=== PATIENT | female | born 1990 | race African-American/Black ===

== ENCOUNTER 2019-02-26 13:21 | Emergency (ER) | payer MEDICAID ==
[~2019-02-26] VITALS: Ht 162.6 cm; Wt 48.0 kg
[2019-02-26] MEDS ORDERED: DEXAMETHASONE 10 MG/ML VIAL PO ONE (16:00)
[2019-02-26] MEDS ORDERED: KETOROLAC 60MG/2ML VIAL IM ONE (16:00)
[2019-02-26 17:02] LABS: CHLORIDE 105 mEq/L (98-107)
[2019-02-26] MEDS ORDERED: ONDANSETRON HCL 4MG/2ML INJ IV ONE (17:30)
[2019-02-26] MEDS ORDERED: MORPHINE SULFATE 4 MG/ML CPJ (NOT FOR IM USE) IV ONE (17:30)
[2019-02-26] MEDS ORDERED: IOHEXOL-300 100 ML BOTTLE ONE (18:56)
[2019-02-26] MEDS ORDERED: LIDOCAINE 1%/EPI 1:100,000 10 ML VIAL IJ ONE (20:15)
[2019-02-26] MEDS ORDERED: TETRACAINE/BENZOCAINE/BUTAMBEN 20 GM SPRAY MM ONE (20:15)
[2019-02-26] MEDS ORDERED: LIDOCAINE HCL/EPINEPHRINE 1%-EPI 1:100,000 20 ML VIAL INFIL NR (20:45)
[2019-02-26] MEDS ORDERED: LORAZEPAM 2MG/ML CPJ IV ONE (21:00)
[2019-02-26] MEDS ORDERED: SODIUM CHLORIDE 0.9% 1,000 ML IV ONE (21:00)
[2019-02-26] MEDS ORDERED: AMOXICILLIN/POTASSIUM CLAVULANATE 875/125MG TAB PO ONE (21:30)
[2019-02-26 22:41] VITALS: BP 101/65
== END 2019-02-26 22:45 | disposition home or self-care (01) ==
LOC: ER 13:21
DX: J36 Peritonsillar abscess (principal)
CPT/HCPCS: 36415; 70491; 80048; 87070; 87430; 96372; 96374; 96375; 99284; J1100; J1885; J2270; J2405; J3490; J7030; Q9967